=== PATIENT | male | born 1955 | race Caucasian/White ===

== ENCOUNTER 2022-07-10 13:52 | Outpatient (CLI) | payer MEDICARE, SELFPAY ==
--- NOTE | ~2022-07-10 | US_ITS ---
EXAMINATION: US arterial duplex LE DATE: 07/10/2022 16:30 INDICATION: Peripheral vascular disease TECHNIQUE: Multiple grayscale and Doppler ultrasound images of the arteries of the bilateral lower li mbs were obtained. COMPARISON: None FINDINGS: Normal triphasic arterial waveforms with brisk systolic upstrokes at the right common femoral, profun da femoral, superficial femoral, popliteal, peroneal, anterior tibial, dorsalis pedis and proximal to mid posterior tibial arteries. Slow aphasic flow in the region of the distal right posterior tibial artery, unclear whether within the artery or adjacent vein suggesting occlusion versus high-grade chani nosis occurring between the mid and distal right posterior tibial artery. Normal triphasic arterial waveforms with brisk systolic upstrokes at the left common femoral, profund a femoral superficial femoral arteries. Biphasic waveforms with brisk systolic upstrokes at the left popliteal, posterior tibial, anterior tibial and dorsalis pedis arteries. Likely occlusion of the lef t peroneal artery with no evident vascular flow on color Doppler. IMPRESSION: 1. 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 2. Likely occlusion versus high-grade stenosis in the right posterior tibial artery with transition f rom biphasic waveforms with brisk systolic upstrokes in the mid artery to slow aphasic flow of indete rminate direction at the distal artery. 3. Brisk systolic upstrokes with either triphasic or biphasic waveforms throughout the remaining olimpia tania of the bilateral lower limbs. Reviewed, dictated and finalized at location A. IMPRESSION: 1. 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 2. Likely occlusion versus high-grade stenosis in the right posterior tibial ar justin with transition from biphasic waveforms with brisk systolic upstrokes in t he mid artery to slow aphasic flow of indeterminate direction at the distal art cristine. 3. Brisk systolic upstrokes with either triphasic or biphasic waveforms through out the remaining arteries of the bilateral lower limbs.
== END 2022-07-10 13:53 | disposition home or self-care (01) ==
PROVIDERS: PCP Internal Medicine Gastroenterology; Visit Provider Podiatrist Foot & Ankle Surgery
DX: I73.9 Peripheral vascular disease, unspecified (principal)
CPT/HCPCS: 93925

== ENCOUNTER 2023-08-06 01:13 | Day surgery (SDC) | payer MEDICARE, SELFPAY ==
[2023-07-21 14:24] VITALS: BMI 35.1
[2023-08-06 09:45] VITALS: BP 133/62; PULSE 65; RESP 16; TEMP 36.3; O2SAT 100
[2023-08-06 09:49] VITALS: BMI 34.4
[2023-08-06 09:51] LABS: Glucose Point of Care 133 mg/dl (65-105)
--- NOTE | 2023-08-06 09:53 | PM.HPGS ---
History of Present Illness History of Present Illness Consent: Risks, benefits, and alternatives have been discussed and questions answered. Patient agrees to proceed with procedure. Chief complaint: Other fecal abnormalities Narrative: Trace Emanuel is a 68 year old male here for first colonoscopy, had + cologuard Review of Systems Review of Systems: All systems reviewed & are unremarkable except as noted in HPI and below PMFSH Past Medical History Medical History (Updated 08/06/23 @ 09:54 by Sg Mcfadden MD) Positive colorectal cancer screening using Cologuard test Social History Social History Smoking status: Never smoker Alcohol intake: never Substance use: never Substance use type: does not use Living arrangements: alone Spiritual care concerns: No Meds Home Medications and Allergies Home Medications Medication Instructions Recorded Confirmed Type atorvastatin 40 mg tablet 40 mg PO DAILY 07/21/23 08/06/23 History canagliflozin 100 mg tablet 100 mg PO DAILY 07/21/23 08/06/23 History (Invokana) clopidogrel 75 mg tablet 75 mg PO DAILY 07/21/23 07/21/23 History enalapril maleate 10 mg tablet 10 mg PO DAILY 07/21/23 07/21/23 History fenofibrate micronized 200 mg 200 mg PO DAILY 07/21/23 07/21/23 History capsule furosemide 20 mg tablet 20 mg PO DAILY 07/21/23 07/21/23 History hydrochlorothiazide 12.5 mg capsule 12.5 mg PO DAILY 07/21/23 07/21/23 History insulin glargine 100 unit/mL (3 See Rx Instructions .Route .COMPLEX 07/21/23 07/21/23 History mL) subcutaneous pen (Lantus Solostar U-100 Insulin) insulin regular human 100 unit/mL See Rx Instructions .Route .COMPLEX 07/21/23 07/21/23 History injection solution (Humulin R Regular U-100 Insulin) metformin 500 mg tablet See Rx Instructions .Route .COMPLEX 07/21/23 07/21/23 History metoprolol tartrate 50 mg tablet 50 mg PO BID 07/21/23 08/06/23 History Allergies Allergy/AdvReac Type Severity Reaction Status Date / Time No Known Allergies Allergy Verified 08/06/23 09:42 Vital Signs Vital Signs - 24 hr 08/06/23 09:45 Temperature 97.4 F L Pulse Rate 65 Respiratory Rate 16 Blood Pressure 133/62 Pulse Oximetry 100 Oxygen Delivery Room Air Exam Const: General: comfortable and no acute distress HENMT: Face/Nose/Sinus: Normal nares present Eyes: General: appearance normal, both eyes and all related structures Neck: Neck: no JVD Resp: Auscultation: clear to auscultation bilaterally Cardio: Rate: regular rate Rhythm: regular rhythm GI: Inspection: non-distended GI Palp: Yes Soft to palpation Skin: General skin exam: normal color Neuro: General: gait normal Speech: normal speech Extrem: General: normal to inspection Psych: Mental Status: mental status grossly normal Assessment and Plan Assessment and plan (1) Positive colorectal cancer screening using Cologuard test: Code(s): R19.5 - Other fecal abnormalities Status: Acute Assessment and Plan: colonoscopy
[2023-08-06] MEDS: LACTATED RINGERS 1,000 ML 150 ML IV CONT (09:54)
--- NOTE | 2023-08-06 10:03 | WPDANESEPPF ---
Anes - Initial Pre Proc Eval Procedure: Operation Date: 08/06/23 11:00 Proposed Procedures p Colonoscopy - Sg Mcfadden MD Date/Time: 08/06/23 10:03 Surgeon: Sg Mcfadden MD Pre Op Diagnosis: Other fecal abnormalities Patient Data Age: 68 Gender: M Height: 1.78 m Weight: 108.7 kg Last Vital Signs Temp 97.4 F L 08/06/23 09:45 Pulse 65 08/06/23 09:45 Resp 16 08/06/23 09:45 BP 133/62 08/06/23 09:45 Pulse Ox 100 08/06/23 09:45 O2 Del Method Room Air 08/06/23 09:45 Allergies Allergy/AdvReac Type Severity Reaction Status Date / Time No Known Allergies Allergy Verified 08/06/23 09:42 Home Medications Medication Instructions Recorded Confirmed Type atorvastatin 40 mg tablet 40 mg PO DAILY 07/21/23 08/06/23 History canagliflozin 100 mg tablet 100 mg PO DAILY 07/21/23 08/06/23 History (Invokana) clopidogrel 75 mg tablet 75 mg PO DAILY 07/21/23 07/21/23 History enalapril maleate 10 mg tablet 10 mg PO DAILY 07/21/23 07/21/23 History fenofibrate micronized 200 mg 200 mg PO DAILY 07/21/23 07/21/23 History capsule furosemide 20 mg tablet 20 mg PO DAILY 07/21/23 07/21/23 History hydrochlorothiazide 12.5 mg capsule 12.5 mg PO DAILY 07/21/23 07/21/23 History insulin glargine 100 unit/mL (3 See Rx Instructions .Route .COMPLEX 07/21/23 07/21/23 History mL) subcutaneous pen (Lantus Solostar U-100 Insulin) insulin regular human 100 unit/mL See Rx Instructions .Route .COMPLEX 07/21/23 07/21/23 History injection solution (Humulin R Regular U-100 Insulin) metformin 500 mg tablet See Rx Instructions .Route .COMPLEX 07/21/23 07/21/23 History metoprolol tartrate 50 mg tablet 50 mg PO BID 07/21/23 08/06/23 History Laboratory Tests 08/06/23 09:49 POC Capillary Glucose 133 H mg/dl (65-105) Patient hx anesthesia problems: none Family hx anesthesia problems: none Results Review: All pre-operative results and documents have been reviewed as part of the pre-operative evaluation. [facility]LY [facility] Past Medical History Medical History (Updated 08/06/23 @ 09:54 by Sg Mcfadden MD) Positive colorectal cancer screening using Cologuard test Social History Social History Smoking status: Never smoker Alcohol intake: never Substance use: never Substance use type: does not use Living arrangements: alone Spiritual care concerns: No Anes - Eval Final PreProcedure Day of Procedure 08/06/23 10:03 Patient weight: obese Heart: regular rate and rhythm Lungs: clear to auscultation Airway: Mallampati scale class II Neurological: alert and oriented Last oral intake: >/= 8 hours ASA classification: III Emergent: no Anesthetic plan: proceed Anesthesia type and monitoring: general GIVS and standard monitoring Results Review: All pre-operative results and documents have been reviewed as part of the pre-operative evaluation. Informed Consent: The patient's anesthetic plan and its attendant risks and benefits were discussed with the patient/family/POA. Questions were solicited and answers provided to the satisfaction of the patient/family/POA.
[2023-08-06 10:16] VITALS: BP 118/73; PULSE 67; RESP 20; O2SAT 98
[2023-08-06 10:26] VITALS: BP 128/73; PULSE 68; RESP 18; O2SAT 99
[2023-08-06 10:36] VITALS: BP 143/76; PULSE 67; RESP 18; O2SAT 99
[2023-08-06 10:38] LABS: Glucose Point of Care 122 mg/dl (65-105)
== END 2023-08-06 10:45 | disposition home or self-care (01) ==
PROVIDERS: PCP Internal Medicine Gastroenterology; Visit Provider Internal Medicine Gastroenterology
PROC: 0DJD8ZZ Inspection of Lower Intestinal Tract, Via Natural or Artificial Opening Endoscopic (ICD-10-PCS; CPT 45378; principal; 2023-08-06 11:00)
DX: R19.5 Other fecal abnormalities (principal); D12.5 Benign neoplasm of sigmoid colon; K64.8 Other hemorrhoids; K57.30 Diverticulosis of large intestine without perforation or abscess without bleeding; E66.9 Obesity, unspecified; Z68.34 Body mass index [BMI] 34.0-34.9, adult; Z79.02 Long term (current) use of antithrombotics/antiplatelets; Z79.4 Long term (current) use of insulin; Z79.84 Long term (current) use of oral hypoglycemic drugs
CPT/HCPCS: 45385; 82948; 88305; J2704; J7120